=== PATIENT | male | born 1985 ===

== ENCOUNTER 2024-04-06 07:15 | Day surgery (SDC) | payer OTHER ==
[~2024-04-06 07:15] MED LIST: Propofol 200 MG/20 ML SDV ONE; Ropivacaine 0.5% 5 MG/ML 30 ML SDV ONE; dexmedeTOMIDine HCl 200 MCG/2 ML SDV ONE; fentaNYL 250 MCG/5 ML SDV ONE
[2024-04-06] MEDS ORDERED: Bupivacaine 0.25% 10 ML SDV ONE (07:45)
[2024-04-06] MEDS ORDERED: Lactated Ringers 1,000 ML IV ONE ×3 (08:15→09:30)
[2024-04-06] MEDS ORDERED: ceFAZolin 2 GM Vial ONE (08:24)
[2024-04-06] MEDS ORDERED: Ketorolac 15 MG/ML SDV ONE (08:39)
[2024-04-06] MEDS ORDERED: Dexamethasone 4 MG/ML 5 ML MDV ONE (08:39)
[2024-04-06] MEDS ORDERED: Ondansetron 4 MG/2 ML SDV ONE (08:39)
[2024-04-06] MEDS ORDERED: HYDROmorphone 0.5 MG/0.5 ML Syringe ONE ×2 (08:49→08:52)
[2024-04-06] MEDS ORDERED: fentaNYL 100 MCG/2 ML SDV ONE (08:54)
[2024-04-06] MEDS ORDERED: Lidocaine 1% 2 ML ONE (09:19)
[2024-04-06] MEDS ORDERED: HYDROmorphone 0.5 MG/0.5 ML Syringe IVPUSH PRN (10:24)
[2024-04-06] MEDS ORDERED: fentaNYL 100 MCG/2 ML SDV IVPUSH PRN (10:24)
[2024-04-06] MEDS ORDERED: Ondansetron 4 MG/2 ML SDV IVPUSH PRN (10:24)
[2024-04-06] MEDS ORDERED: Acetaminophen/HYDROcodone 325-5 MG Tab PO PRN (12:47)
== END 2024-04-06 13:45 | disposition home or self-care (01) ==
LOC: JD.SDS 07:15
PROVIDERS: ATTEND Orthopaedic Surgery
DX: S46.212A Strain of muscle, fascia and tendon of other parts of biceps, left arm, initial encounter (principal); X58.XXXA Exposure to other specified factors, initial encounter
CPT/HCPCS: 24342; 76000; C1776; J0690; J1100; J1885; J2405; J2704; J2795; J3010; J7120; J0665; J3490